=== PATIENT | male | born 1965 | race Caucasian/White ===

== ENCOUNTER 2016-09-05 04:51 | Inpatient (IN) | payer OTHER ==
[2016-09-05 11:28] VITALS: BP 120/75
[2016-09-05 12:09] VITALS: BP 12/75
[2016-09-05 15:04] VITALS: BP 119/71
[2016-09-05 19:24] VITALS: BP 102/58
[2016-09-05 22:57] VITALS: BP 109/67
[2016-09-06 02:58] VITALS: BP 109/64
[2016-09-06 06:24] VITALS: BP 116/72
[2016-09-06 12:26] VITALS: BP 136/85
[2016-09-06] MEDS ORDERED: LEVAQUIN 750MG750 M1 PO (13:30)
[2016-09-06] MEDS ORDERED: FLAGYL PO (13:30)
== END 2016-09-06 14:09 | disposition home or self-care (01) | DRG 392 ==
LOC: ED 04:51 → MED/SURG 10:35
PROVIDERS: ADMIT Family Medicine
DX: K57.20 Diverticulitis of large intestine with perforation and abscess without bleeding (principal); K59.00 Constipation, unspecified; Z80.0 Family history of malignant neoplasm of digestive organs; R91.1 Solitary pulmonary nodule
CPT/HCPCS: J1885; J1956; J7030; Q9967

== ENCOUNTER → 2016-10-18 | Day surgery (SDC) | payer OTHER ==
[~2016-10-18] MED LIST: FLAGYL PO; LEVAQUIN 750MG750 M1 PO
== END ==
LOC: MSO 07:24
DX: Z12.11 Encounter for screening for malignant neoplasm of colon (principal); D12.0 Benign neoplasm of cecum; K57.30 Diverticulosis of large intestine without perforation or abscess without bleeding; Z87.19 Personal history of other diseases of the digestive system
CPT/HCPCS: 00810; J7120

== ENCOUNTER → 2018-06-27 | Outpatient (CLI) | payer OTHER | LOC: RAD 16:00 | DX: N43.42 Spermatocele of epididymis, multiple (principal); I86.1 Scrotal varices; N50.811 Right testicular pain ==

== ENCOUNTER → 2022-02-23 | Outpatient (CLI) | payer OTHER | LOC: RAD 12:56 | DX: N28.1 Cyst of kidney, acquired (principal); K57.30 Diverticulosis of large intestine without perforation or abscess without bleeding; N40.0 Benign prostatic hyperplasia without lower urinary tract symptoms; R91.1 Solitary pulmonary nodule | CPT/HCPCS: Q9967 ==

== ENCOUNTER 2023-12-14 10:37 | Outpatient (RCR) | payer BC ==
[~2023-12-14 10:37] MED LIST changes: +ONDANSETRON HYDR4 MG PO; +PROTONIX TR40 M1 PO
== END 2024-01-13 ==
LOC: PT
DX: I63.9 Cerebral infarction, unspecified (principal)

== ENCOUNTER 2024-02-06 10:30 | Outpatient (RCR) | payer BC | END 2024-02-12 | disposition home or self-care (01) | LOC: SPEECH | DX: I63.511 Cerebral infarction due to unspecified occlusion or stenosis of right middle cerebral artery (principal) ==

== ENCOUNTER 2024-03-20 07:50 | Outpatient (RCR) | payer BC | END 2024-04-03 14:05 | disposition home or self-care (01) | LOC: SPEECH 07:50 | DX: I63.511 Cerebral infarction due to unspecified occlusion or stenosis of right middle cerebral artery (principal) ==

== ENCOUNTER 2024-05-07 13:47 | Outpatient (RCR) | payer BC | END 2024-05-14 | disposition home or self-care (01) | LOC: PT | DX: I63.231 Cerebral infarction due to unspecified occlusion or stenosis of right carotid arteries (principal) ==